=== PATIENT | male | born 1940 | race Caucasian/White ===

== ENCOUNTER → 2018-04-18 09:52 | Outpatient (CLI) | payer MEDICARE, OTHER, SELFPAY ==
[2018-04-18 10:36] LABS: Add Manual Diff / Slide Review NO; Basophils Percent Auto 1.1 % (0-2); Eosinophils Percent Auto 1.8 % (2-4); Hematocrit 46.6 % (41-53); Hemoglobin 16.1 g/dL (13.5-17.5); Lymphocytes Percent Auto 19.4 % (25-40); Mean Corpuscular HGB Conc 34.5 % (30-36); Mean Corpuscular Hemoglobin 31.5 PG (26-34); Mean Corpuscular Volume 91.3 fL (80-100); Monocytes Percent Auto 11.8 % (3-14); Neutrophils Absolute Auto 4100 /uL (3000-5900); Neutrophils Percent Auto 65.9 % (50-75); Platelet Count 252 X10^3/uL (150-400); Red Cell Distribution Width 13.1 % (11.6-14.8); White Blood Cell Count 6.3 X10^3/uL (4.5-11.0)
[2018-04-18 10:50] LABS: Carbon Dioxide 26 mmol/L (22-32); Chloride 103 mmol/L (98-107); HEMOLYSIS < 15 (0-50); Potassium 4.2 mmol/L (3.4-5.1); Sodium 142 mmol/L (137-145)
== END ==
PROVIDERS: Visit Provider Orthopaedic Surgery
DX: M16.12 Unilateral primary osteoarthritis, left hip (principal); Z01.818 Encounter for other preprocedural examination; Z01.812 Encounter for preprocedural laboratory examination
CPT/HCPCS: 36415; 80051; 85025; 93005

== ENCOUNTER 2018-04-30 07:58 | Inpatient (IN) | payer MEDICARE, OTHER, SELFPAY ==
[2018-04-22 10:05] VITALS: BMI 32.2
[2018-04-23 12:57] VITALS: BMI 32.2
[2018-04-30] VITALS (16 sets, daily range): BP systolic 95–174; BP diastolic 44–70; PULSE 59–83; RESP 12–18; TEMP 35.9–36.5; O2SAT 93–98; BMI 32.2
--- NOTE | 2018-04-30 06:00 | DI.RAD.S_ITS ---
PROCEDURE: XR PELVIS 1-2V INDICATIONS: prosthesis placement TECHNIQUE: 1 view of the lower pelvis acquired. COMPARISON: None. FINDINGS: Bones: Patient is status post left hip arthroplasty, with hardware components in expected positions. The hip joint appears congruent. The visualized bony structures appear intact. Soft tissues: Overlying postoperative changes are noted. No suspicious soft tissue densities. IMPRESSION: Normal postoperative examination. Dictated by: Jose M Jameson M.D. on 04/30/2018 at 9:50 Approved by: Jose M Jameson M.D. on 04/30/2018 at 9:51
[2018-04-30] MEDS: ACETAMINOPHEN 325 MG TABLET 975 MG PO (08:10)
[2018-04-30] MEDS: CELECOXIB 200 MG CAPSULE PO (08:10)
[2018-04-30] MEDS: PREGABALIN 75 MG CAPSULE PO (08:11)
--- NOTE | 2018-04-30 08:19 | PM.PREOP ---
Pre-operative Note Interval Note Pre-op Check: Yes History & Physical Reviewed by Physician Changes: No
--- NOTE | 2018-04-30 08:23 | SUR.OPER ---
Lateral on padded OR bed. Gel axillary roll. Arms secured on padded armboard with pillow supporting top arm. Padded hip positioner braces x4 - anterior and posterior chest and pelvis. Additional gel pad used anterior pelvis. Gel pad under bottom leg from knee to foot and secured with tape over sheet.
[2018-04-30] MEDS: LACTATED RINGERS 1,000 ML 42 ML IV ×2 (08:28→10:18)
[2018-04-30] MEDS: CEFAZOLIN 2 GM/100 ML FROZ.PIGGY IV ×2 (08:55→18:42)
[2018-04-30] MEDS: BUPIVACAINE 0.25% W/ EPI VIAL 50 ML INJ (09:41)
--- NOTE | 2018-04-30 10:13 | PC.NURSE ---
Day shift: Pt is not on AC unit at this time.
--- NOTE | 2018-04-30 10:28 | PM.OP.1 ---
Operative Date/Time/Diagnoses Date of procedure: 04/30/18 Time of procedure: 10:28 Pre-op diagnosis: Left hip degenerative joint disease Post-op diagnosis: same Procedure & Clinicians Procedure: Left total hip arthroplasty (CPT code 95287 with medical assistant cardiology) Same procedure as scheduled: Yes Indications: Patient is an 78-year-old male with severe left hip DJD. The patient has pain with activities and at rest, limited ambulation and activity tolerance, difficulties with ADLs, and failure of conservative treatment. We have discussed the nature of condition, treatment options, risks and benefits, and patient elects to proceed with total hip arthroplasty and gives informed consent. Surgeon: Ramirez Arango Retail Beauty Specialist: Ary Castro Anesthesia Type: General and Spinal Operative Notes Closure Type: primary Specimen(s): none sent Implants & Drains: Acetabulum: [employer] R3 acetabular component size 54 mm Femoral component: [employer] Synergy stem size 14 with high offset Femoral head: 36 mm + 0 cobalt chrome Estimated Blood Loss (mL): 100 Procedure in detail: After satisfaction induction of anesthetic, and administration of IV antibiotics, the patient was positioned in the lateral decubitus position with all bony prominences well padded and pelvic position secured using a hip reconciliation clerk positioning device. Left hip and lower extremity prepped and draped in the usual sterile fashion, 1st dose of intravenous tranexamic acid was administered, then a longitudinal incision was created centered over the greater trochanter and carried sharply through the skin and subcutaneous tissues down to the fascia pam which was divided longitudinally and retracted with a Charnley retractor. External rotators visualize, cut, tagged, and retracted posteriorly, then the capsule was cut in a T-type fashion with the corners tagged and retracted. Hip was dislocated and femoral neck cut made according to preoperative templating. Acetabular retractors then placed, and the acetabular labrum and osteophytes were excised. The acetabulum was then sequentially reamed to 53 mm with an excellent circumferential ream and fit with the trial. The trial component was removed and a permanent size 54 mm [employer]hew R3 acetabular component was selected, positioned, and impacted with satisfactory position and fixation achieved. Permanent liner was then inserted with the elevated lip directed posteriorly. Soft tissue then removed off the lateral femoral neck in the lateral neck was entered using a box osteotome. T-handled reamers placed down the canal followed by sequential broaching to 14 with the final broach left in place for trial reduction which demonstrated excellent leg length, range of motion, and stability characteristics with a 36 mm +0 trial ball and high offset neck. The trial and broach were removed, and a permanent size 14 high offset Mead [employer] Nephew Synergy stem was selected and inserted with excellent position and fixation achieved. Another trial reduction yielded the above characteristics so the trial ball was exchanged for a permanent 36 mm +0 cobalt chrome ball. The hip was irrigated and reduced and excellent leg length range of motion and stability characteristics were achieved and maintained. The hip was copiously irrigated, and the capsule repaired with #2 Ethibond, and the piriformis was repaired back to the greater trochanter with the same. Fascia pam closed with interrupted #1 Ethibond sutures, and the subcutaneous tissues were closed in 2 layers of 0 Vicryl and 2 0 Vicryl. Skin was closed with ivette and sterile dressings applied. Second dose of tranexamic acid was administered intravenously, and the anesthetic was terminated. Complications: none Condition: stable Disposition: PACU Plan for aftercare: Patient will be admitted to the [facility], and anticipate discharge on postop day 2 with follow-up in office in 10-14 days. Outpatient physical therapy will be arranged and patient will continue to observe posterior hip precautions. Patient will continue use of postoperative Lovenox for 10 days postop.
--- NOTE | 2018-04-30 10:33 | P.OP_ITS ---
Operative Date/Time/Diagnoses Date of procedure: 04/30/18 Time of procedure: 10:28 Pre-op diagnosis: Left hip degenerative joint disease Post-op diagnosis: same Procedure & Clinicians Procedure: Left total hip arthroplasty (CPT code 27283 with contact center assistant) Same procedure as scheduled: Yes Indications: Patient is an 78-year-old male with severe left hip DJD. The patient has pain with activities and at rest, limited ambulation and activity tolerance, difficulties with ADLs, and failure of conservative treatment. We have discussed the nature of condition, treatment options, risks and benefits, and patient elects to proceed with total hip arthroplasty and gives informed consent. Surgeon: Ramirez Arango Lock Fitter: Ary Castro Anesthesia Type: General and Spinal Operative Notes Closure Type: primary Specimen(s): none sent Implants & Drains: Acetabulum: [employer]hew R3 acetabular component size 54 mm Femoral component: [employer]hew Synergy stem size 14 with high offset Femoral head: 36 mm + 0 cobalt chrome Estimated Blood Loss (mL): 100 Procedure in detail: After satisfaction induction of anesthetic, and administration of IV antibiotics, the patient was positioned in the lateral decubitus position with all bony prominences well padded and pelvic position secured using a hip horn player positioning device. Left hip and lower extremity prepped and draped in the usual sterile fashion, 1st dose of intravenous tranexamic acid was administered, then a longitudinal incision was created centered over the greater trochanter and carried sharply through the skin and subcutaneous tissues down to the fascia pam which was divided longitudinally and retracted with a Charnley retractor. External rotators visualize, cut, tagged, and retracted posteriorly, then the capsule was cut in a T-type fashion with the corners tagged and retracted. Hip was dislocated and femoral neck cut made according to preoperative templating. Acetabular retractors then placed, and the acetabular labrum and osteophytes were excised. The acetabulum was then sequentially reamed to 53 mm with an excellent circumferential ream and fit with the trial. The trial component was removed and a permanent size 54 mm Mead [employer]hew R3 acetabular component was selected, positioned, and impacted with satisfactory position and fixation achieved. Permanent liner was then inserted with the elevated lip directed posteriorly. Soft tissue then removed off the lateral femoral neck in the lateral neck was entered using a box osteotome. T-handled reamers placed down the canal followed by sequential broaching to 14 with the final broach left in place for trial reduction which demonstrated excellent leg length, range of motion, and stability characteristics with a 36 mm +0 trial ball and high offset neck. The trial and broach were removed, and a permanent size 14 high offset Mead [employer]hew Synergy stem was selected and inserted with excellent position and fixation achieved. Another trial reduction yielded the above characteristics so the trial ball was exchanged for a permanent 36 mm +0 cobalt chrome ball. The hip was irrigated and reduced and excellent leg length range of motion and stability characteristics were achieved and maintained. The hip was copiously irrigated, and the capsule repaired with #2 Ethibond, and the piriformis was repaired back to the greater trochanter with the same. Fascia pam closed with interrupted #1 Ethibond sutures, and the subcutaneous tissues were closed in 2 layers of 0 Vicryl and 2 0 Vicryl. Skin was closed with ivette and sterile dressings applied. Second dose of tranexamic acid was administered intravenously , and the anesthetic was terminated. Complications: none Condition: stable Disposition: PACU Plan for aftercare: Patient will be admitted to the [facility], and anticipate discharge on postop day 2 with follow-up in office in 10-14 days. Outpatient physical therapy will be arranged and patient will continue to observe posterior hip precautions. Patient will continue use of postoperative Lovenox for 10 days postop.
--- NOTE | 2018-04-30 11:43 | PC.NURSE ---
Day shift: Arrived on unit at approx 1130 from PACU. Oriented to room and call light. Limited sensation BLE. Denies pain and nausea. Pt's spouse name is Joselyn. VS WNL. Left hip bulky dressing is CDI. Call light in reach and bed alarm is on.
[2018-04-30] MEDS: LACTATED RINGERS 1,000 ML 125 ML IV (11:49)
--- NOTE | 2018-04-30 16:00 | PT.IIE ---
Current Diagnoses Unilateral primary osteoarthritis, left hip (04/30/18) Surgery Performed Operation Date: 04/30/18 10:15 Actual Procedures p Total Hip Arthroplasty(Left) - Ramierz Arango MD Surgical History (Last Updated 04/23/18 @ 13:17 by Eileen Corona, RN) H/O hand surgery (Acute) History of tonsillectomy (Acute) History of total knee arthroplasty (Acute) Medical History (Last Updated 04/23/18 @ 13:15 by Eileen Corona, RN) Aortic insufficiency (Acute) Aortic regurgitation (Acute) Arthritis (Acute) Bilateral hearing loss (Acute) Chronic gout (Acute) Enlarged prostate (Acute) Essential hypertension (Acute) History of aneurysm (Acute) Mitral regurgitation (Acute) Murmur (Acute) Pure hypercholesterolemia (Acute) Valvular heart disease (Acute) Physical Therapy Inpatient Evaluation/Re-Eval Medical Review Prior Functional Status Medical History Reviewed Yes Diet/Fluid Consistency Regular Communication no known deficits other than [place] Mobility and Gait indep without AD, does have access to a FWW Activities of Daily Living and IADL's ind Prior Functional Level (Other details) denies falls, usually drives Social History Household Members spouse Living Arrangements House Number of Floors (Floors) One Floor Number of Stairs To Enter/Railing? 2-5 BLADE depending on entrance Home Environment Standard Height Toilet Walk in Shower Home Equipment Front Wheel Walker Hospital Bed Employment Status Retired Additional Social History Comment can provide 20/02 assist Physical Therapy Current Condition Current Condition Evaluation Date 04/30/18 Treatment Diagnosis L post DANIELA - impaired mobility Precautions Posterior Hip Precautions No Hip Flexion > 90 degrees No Hip Internal Rotation No Hip Adduction Weight Bearing Status Weight Bearing Status Weight Bear as Tolerated Subjective Physical Therapy Visit Type Type Initial Evaluation Visit Start Time 14:50 Visit Stop Time 15:50 Total Visit Minutes 60 Physical Therapy Visit Comments Patient Comments Pt wants to go home today. Patient Goals Go home today Therapy Pain Assessment Pain When Pain Assessed At Rest Pain Present Pain Present Denied Pain PT-Bed Mobility Assessment Supine to Sit Supine to Sit Standby Assistance Head of Bed Elevated Bedrails Sit to Supine Sit to Supine Contact Guard Assistance Head of Bed Elevated Bedrails Scooting Scooting to Edge of Bed Standby Assistance PT-Transfer Assessment Sit to and From Stand Sit to and from Stand Contact Guard Assistance Equipment Transfer Assistive Device Gait Belt Front Wheeled Walker Transfer Ability Level of Assist Contact Guard Assistance 1 Person Assistance Use of Upper Extremities Comments Mobility Comments Pt is able to complete bed mobility and sit<>stand without true physical assistance, however, pt needs nearly constant cues to maintain post hip prec. Gait Assessment Gait Gait Assistance Required: Contact Guard Assist Minimum Assistance Distance (Feet) 25 Assistive Devices Assistive Device Gait Belt Front Wheeled Walker Gait Deviations General Gait Pattern Antalgic Decreased Stride Length Decreased Feet Clearance Flexed Trunk Step-to Gait Wide Based Gait Factors Limiting Gait Function Factors Limiting Gait Function Decreased Activity Tolerance Decreased Strength Poor Balance Poor Safety Awareness Respiratory Distress Comments Gait Comments Pt able to walk 25 ft with FWW and CGA<>min A (2nd person needed to manage IVpole). Pt's balance and upright postural control were not as good as was expected. Pt demonstrated the above abnormalities but also did not respond well to cues for correction. Stair Climbing Assessment Comments Stair Climbing Comments not yet assessed PT-Balance Assessment Sitting Balance and Reactions Static Sitting Balance Ability Good Dynamic Sitting Balance Ability Fair Standing Balance and Reactions Static Standing Balance Ability Fair Dynamic Standing Balance Ability Poor Device Used FWW Orientation Orientation/Cognition Level of Alertness Alert Orientation Name Age Birthday Language Function Ability Hard of Hearing Safety Awareness Decreased Safety Awareness Memory Description Short Term Impaired Comments Pt quite [place] and some level of delay with answering questions. Gross Range of Motion Upper Extremity ROM Assessment Within Functional Limits Lower Extremity ROM Assessment Within Functional Limits Impairments with L post hip prec Strength Upper Extremity Strength Assessment Within Functional Limits Comments Strength Comments not formally tested, RLE appears fully intact, LLE limited but pt does have at least anti-gravity Sensation Assessment Sensation Light Touch Intact Physical Therapy Treatment Exercises Exercises Ankle Pumps Gluteal Sets Quad Sets Heel Slides Supine Hip Abduction Education Education Provided Precautions Weight Bearing Status Post-Op Packet Safety PT Summary Assessment and Plan Potential Rehabilitation Potential Good Status of Condition at Evaluation Evolving Summary Impairments ROM Strength Cognition Bed Mobility Transfers Gait Activity Tolerance Assessment Summary Pt is POD#0 for left posterior DANIELA. Pt denies pain at all times and denies feeling any side-effects from medications, however, pt unable to retain hip precaution education and was definitely impulsive with mobility. Pt presents with the above deficits/impairments, causing the need for up to min A with mobility, which is below pt's reported functional baseline. Pt does have potential for functional improvement and will benefit from ongoing skilled therapies to optimize independence, reduce fall risk, and return pt to [facility]. Pt is not safe to to go home today, he needs more mobilization attempts with therapy/nursing prior to going home in addition to needing some form of caregiver training and stair training. Pt is willing to wait until tomorrow, PT to reassess in the morning. Goals Bed Mobility Goal Standby Assistance Transfer Goal Standby Assistance Front Wheeled Walker Gait Goal Standby Assistance Front Wheel Walker Gait Distance 75 Other Goals Up/down 5 steps w/ 1 rail and CGA. Days to Meet Goals 2 Frequency of Treatment Frequency Of Treatment Twice a Day Treatment Plan Physical Therapy Treatment Plan Bed Mobility Training Transfer Training Gait Training Therapeutic Exercise Balance Retraining Post Op Education Discharge Planning Hot or Cold Pack Neuromuscular Re-ed Coordination Retraining Manual Therapy Other Recommendations and Next Treatment see with present, gross Focus mobility screen to confirm he' s safe to go home, stair training, any caregiver training that's needed. Recommendations To Nursing Amount of Assist Needed 1 Person Assist Discharge Recommendations PT Discharge Recommendations Home with 20/02 Assist Home Health
[2018-04-30] MEDS: ASPIRIN EC 81 MG TABLET PO (20:18)
[2018-04-30] MEDS: METOPROLOL 50 MG TABLET 75 MG PO (20:19)
[2018-04-30] MEDS: LISINOPRIL 20 MG TABLET PO (20:19)
[2018-05-01] MEDS: CEFAZOLIN 2 GM/100 ML FROZ.PIGGY IV (01:47)
--- NOTE | 2018-05-01 02:08 | PC.NURSE ---
Addendum entered by Ling Hitchcock R.N. 05/01/18 05:47: Slept at intervals. UOP this shift 2049 and is taking good po fluids so IV saline locked once IVF infused. Continues to deny pain. Original Note: Addendum entered by Ling Hitchcock R.N. 05/01/18 03:01: Patient complaining of slight nausea; medicated with Zofran Original Note: Patient is alert and oriented. Breath sounds CTA with RA sat of 96%. HRR; BP slightly elevated at 146/59. Denies nausea. BT hypoactive but states he has been passing lots of flatus; abdomen feels firm. Indwelling catheter is patent with clear avani urine in bag. Dressing to left hip is CDI. Able to turn self. Denies any pain at present time. Wearing bilateral SCD's. Fall risk score is high and bed alarm is activated.
[2018-05-01] MEDS: ONDANSETRON 4 MG ODT PO (02:59)
[2018-05-01 03:00] VITALS: BP 149/76; PULSE 72; RESP 16; TEMP 36.3; O2SAT 94
[2018-05-01 06:02] LABS: Hematocrit 37.5 % (41-53); Hemoglobin 13.3 g/dL (13.5-17.5)
[2018-05-01 07:33] VITALS: BP 134/55; PULSE 64; RESP 18; TEMP 36.7; O2SAT 96
--- NOTE | 2018-05-01 08:28 | PM.PNPO.1 ---
Subjective Date Patient Seen: 05/01/18 Time Patient Seen: 08:28 Interval history: Patient is postop day 1. Status post left total hip arthroplasty by Dr. Arango. No complaints of pain today. Has a Arreola catheter in because he cannot urinate last night. Has not had physical therapy yet. Would like to go home today if possible. Exam Vital Signs (past 8 hours): - 05/01/18 03:00 Temperature 97.4 F L Pulse Rate 72 Respiratory Rate 16 Blood Pressure 149/76 H Pulse Oximetry 94 Oxygen Delivery Method Room Air Narrative Exam Narrative: Patient in bed. About to have breakfast. Alert and orient x3. Appears comfortable. Left hip dressing clean dry and intact. Bilateral calves soft and nontender. Neurovascular status intact. 5/5 BLE strength. Objective Labs Result Diagrams: 05/01/18 05:12 Labs: Laboratory Results - last 24 hr 05/01/18 05:12 Hgb 13.3 L Hct 37.5 L Assessment & Plan Post-op Postoperative Procedures Operation Date: 04/30/18 10:15 Actual Procedures Side Surgeon p Total Hip Arthroplasty Left Ramirez Arango MD Postop day 1. Patient would like to go but he must be able to urinate and ambulate before discharge. Right discharge orders for tentative discharge today if he is able to complete these 2 things. Prescription for Lovenox 40 mg x9 days for DVT prophylaxis. He already has this pain medications at home. Physical therapy is already set up for next week. Quality VTE Deep Vein Thrombosis/Pulmonary Embolism Present on Admission: No
[2018-05-01] MEDS: METOPROLOL 50 MG TABLET 75 MG PO (08:33)
[2018-05-01] MEDS: ENOXAPARIN 40 MG/0.4 ML SYRINGE SUBCUT (08:35)
[2018-05-01] MEDS: hydroCHLOROthiazide 25 MG TABLET PO (08:35)
[2018-05-01] MEDS: ALLOPURINOL 100 MG TABLET PO (08:35)
[2018-05-01] MEDS: FENOFIBRATE 160 MG TABLET PO (08:35)
[2018-05-01] MEDS: SODIUM CHLORIDE 0.9% FLUSH 10 ML IV (08:36)
[2018-05-01] MEDS: HYDROCODONE/ACET 5/325 TABLET 1 TAB PO ×2 (08:37→14:52)
[2018-05-01 09:26] VITALS: BP 167/55
--- NOTE | 2018-05-01 09:41 | PT.IPTN ---
Addendum entered and electronically signed by Megan Wells, PT 05/01/18 09:41: I directly supervised and guided this session. Jc Wells, DPGordy Original Note: Current Diagnoses Unilateral primary osteoarthritis, left hip (04/30/18) Surgery Performed Operation Date: 04/30/18 10:15 Actual Procedures p Total Hip Arthroplasty(Left) - Ramirez Arango MD Physical Therapy Treatment Note M2 PT-IP Current Condition Start: 04/30/18 13:05 Freq: NEEDED Status: Active Protocol: Document 04/30/18 14:50 RS (Rec: 05/01/18 07:51 RS [email or web address]) Physical Therapy Current Condition Current Condition Evaluation Date 04/30/18 Treatment Diagnosis L post DANIELA - impaired mobility Precautions Posterior Hip Precautions No Hip Flexion > 90 degrees No Hip Internal Rotation No Hip Adduction Weight Bearing Status Weight Bearing Status Weight Bear as Tolerated M3 PT-IP Subjective Start: 04/30/18 13:05 Freq: NEEDED Status: Active Protocol: Document 05/01/18 09:26 (Rec: 05/01/18 09:41 [email or web address]) Subjective Physical Therapy Visit Type Type Treatment Note Visit Start Time 09:14 Visit Stop Time 09:59 Total Visit Minutes 45 Physical Therapy Visit Comments Patient Comments Feels fine. Ready to ambulate and try stairs. Ready to go home Wouldn't you be?! Patient Goals Go home. Therapy Pain Assessment Pain When Pain Assessed After Treatment Pain Present Pain Present Pain Reported Location Left Hip Intensity 1 Scale Used Numeric (1 - 10) M4 PT-IP Mobility and Gait Start: 04/30/18 13:05 Freq: NEEDED Status: Active Protocol: Document 05/01/18 09:26 (Rec: 05/01/18 09:41 [email or web address]) PT-Bed Mobility Assessment Supine to Sit Supine to Sit Standby Assistance Sit to Supine Sit to Supine Standby Assistance Scooting Scooting to Edge of Bed Standby Assistance PT-Transfer Assessment Sit to and From Stand Sit to and from Stand Standby Assistance Equipment Transfer Assistive Device Standard Walker Orthotic/Prosthetic Devices or Brace: No Transfers Transfer Destination Bed Chair Wheelchair Transfer Technique Stand Step Pivot Transfer Ability Level of Assist Standby Assistance Comments Mobility Comments SBA needed mainly to remind patient of precautions. Is still slightly impulsive. Gait Assessment Gait Gait Assistance Required: Standby Assistance Distance (Feet) 200 Assistive Devices Assistive Device Standard Walker Gait Deviations General Gait Pattern Within Normal Limits Stair Climbing Assessment Evaluation Level of Assist On Stairs Standby Assistance Contact Guard Assistance Technique/Endurance Stair Climbing Technique Step to Step Comments Stair Climbing Comments Needs reminders to slow down and Not break precautions. PT-Balance Assessment Sitting Balance and Reactions Static Sitting Balance Ability Normal Dynamic Sitting Balance Ability Normal Standing Balance and Reactions Static Standing Balance Ability Normal Dynamic Standing Balance Ability Good M5 PT-IP Objective Assessments Start: 04/30/18 13:05 Freq: NEEDED Status: Active Protocol: Document 04/30/18 14:50 RS (Rec: 05/01/18 07:51 RS [email or web address]) Orientation Orientation/Cognition Level of Alertness Alert Orientation Name Age Birthday Language Function Ability Hard of Hearing Safety Awareness Decreased Safety Awareness Memory Description Short Term Impaired Comments Pt quite [place] and some level of delay with answering questions. Gross Range of Motion Upper Extremity ROM Assessment Within Functional Limits Lower Extremity ROM Assessment Within Functional Limits Impairments with L post hip prec Strength Upper Extremity Strength Assessment Within Functional Limits Comments Strength Comments not formally tested, RLE appears fully intact, LLE limited but pt does have at least anti-gravity Sensation Assessment Sensation Light Touch Intact M6 PT-IP Treatment Start: 04/30/18 13:05 Freq: NEEDED Status: Active Protocol: Document 04/30/18 14:50 RS (Rec: 05/01/18 07:51 RS [email or web address]) Physical Therapy Treatment Exercises Exercises Ankle Pumps Gluteal Sets Quad Sets Heel Slides Supine Hip Abduction Education Education Provided Precautions Weight Bearing Status Post-Op Packet Safety M7 PT-IP Assessment and Plan Start: 04/30/18 13:05 Freq: NEEDED Status: Active Protocol: Document 05/01/18 09:26 (Rec: 05/01/18 09:41 [email or web address]) PT Summary Assessment and Plan Potential Rehabilitation Potential Good Status of Condition at Evaluation Stable Summary Impairments Pain ROM Strength Balance Activity Tolerance Progress Towards Goals Progressing Toward Goals Safe For Discharge Assessment Summary POD#2 L THR. Pt demonstrates good ambulation tolerances and ability on stairs. Still needs SBA for verbal reminders to slow down and not break precautions. Touch cuing occasionally needed for same reminders. Discharge home with 24/ assist avaliable ( states able to do this) anticipated after Arreola removed. OP PT needed for THR rehab protocol to regain strength and for return to full baseline functional status. Goals Bed Mobility Goal Standby Assistance Transfer Goal Standby Assistance Gait Goal Standby Assistance Days to Meet Goals 1 Frequency of Treatment Frequency Of Treatment Discharge Treatment Plan Other Recommendations and Next Treatment Discharge to home 20/02 assist Focus () with OP PT f/u Recommendations To Nursing Amount of Assist Needed Standby Assistance 1 Person Assist Discharge Recommendations PT Discharge Recommendations Home with Assistance Home with 20/02 Assist Outpatient PT Equipment Needed for Home Before Has Standard walker at home Discharge
--- NOTE | 2018-05-01 11:55 | CM.DANOTE ---
DCP/Assessment continued: Reviewed chart. Patient is a 78yr old male admitted [facility] for left DANIELA performed on 04-30-[address] Arango. [facility] 1[facility]Medicare [facility]CP [facility] at [facility]. Met with patient explained CM/SW role. Patient alert and oriented at time of visit. Patient reports that he is discharging home today. Patient seen by therapy and reports that he has been cleared. Patient reports having all needed DME in the home and outpatient therapy scheduled to begin on 05-07-18 at [facility]. Patient denies any d/c planning needs and hopes to be able to leave soon. Spoke with RN whom reports that patient had pope removed and that we are safely waiting for him to void prior to departure. P: Home today once medically stable. GITA Muhammad Discharge Planning/Care Management CM Discharge Assessment Start: 05/01/18 11:53 Freq: Status: Active Protocol: Document 05/01/18 11:53 KJS (Rec: 05/01/18 11:55 KJS [id number]) Discharge Planning Assessment Assigned Importer Or Exporter GITA Muhammad Contact Information Opal Raines # Advance Directives? No: Declines information History Provided By Patient Prior Living Arrangements House Household Members spouse Type of transporation used prior to Drives own vehicle admit Independent with ADL's Yes Is patient alert and oriented? Yes Caregiver for Another No DME Already Rented / Owned FWW / Walker Cane Patient/Family Preference OP PT Therapy Barriers to Discharge No Referrals Initiated None needed Whiteboard Updated in Patient Room with Yes name and ext. # of Importer Or Exporter Review Status In Process Please Provide Date Initial DC 05/01/18 Assessment Was Performed Next Review Type Continued Stay Review Pre-Anesthesia Assessment Start: 04/22/18 10:05 Freq: Status: Complete Protocol: Document 04/22/18 10:05 [place] (Rec: 04/22/18 10:42 [facility] [email or web address]) Pre-Anesthesia Assessment Patient Information Reviewed Via Chart Review Primary Care Provider Mk Goddard Seen Specialist in Last 12 Months Yes Specialist Seen Slate Roofer Orthopedist Height 170.18 cm Weight 93.44 kg Body Mass Index (BMI) 32.2 Hearing Ability Hard of Hearing Anesthesia Review Requested No Mine Engineering Supervisor No alcohol intake current alcohol intake frequency 3 or more drinks per day Alcohol Intake Frequency Other: Beer 21-28 cans/week, 12.6-16. 8 oz/week Smoking Status Former smoker Tobacco type cigarettes how long ago did patient quit smoking 1997 Does patient have BAUTISTA/SOB Yes Currently Taking a Beta Whitley Yes: Metoprolol Can You Climb a Flight of Stairs Without No SOB Hx SOB Yes Has a Slate Roofer Yes: Dr. Valdovinos; 6 month follow up 11/07/17 Cardiac Testing Yes: Echo 10/13 Comment Dynamic outflow tract obstruction Marital Status merried Document 04/23/18 12:57 [facility] (Rec: 04/23/18 13:28 [facility] [email or web address]) Pre-Anesthesia Assessment Patient Also Known As Jiang (AKA) Patient Information Reviewed Via Chart Review Phone Assessment Assessment Completed With Patient Primary Care Provider Mk Goddard Seen Specialist in Last 12 Months Yes Specialist Seen Slate Roofer Orthopedist Primary Language [place] Islander Senior Infrastructure Engineer Required No Height 170.18 cm Weight 93.44 kg Body Mass Index (BMI) 32.2 Hearing Ability Hard of Hearing Visual Impairment Partially Limited Visual Assist Glasses Dentition Type Full- Upper & Lower Barriers to Learning Auditory Visual Comment Reading glasses Hx Anesthesia Reactions No Hx Family Anesthesia Reaction No Hx Malignant Hyperthermia No Hx Blood Transfusions No Anesthesia Review Requested No Mine Engineering Supervisor No alcohol intake current alcohol intake frequency 0-2 drinks per day Alcohol Intake Frequency Other: Beer 21-28 cans/week, 12.6-16. 8 oz/week Smoking Status Former smoker Tobacco type pipe Has it been 2 weeks or less since No patient quit smoking how long ago did patient quit smoking 1997 Substance Use Type does not use Comment Smoked 1 pounch/day for 5-6 years Pain Present Pain Reported Comment Left hip and knee Musculoskeletal Symptoms Back Pain Joint Pain History of Falling (Recent or History of No ) Patient is completely paralyzed or No completely immobile Ambulatory Aid None/bed rest/nurse assist Gait/Transferring Impaired Mental Status Oriented to own ability Is patient on oxygen? No Does patient have BAUTISTA/SOB Yes Hx Sleep Apnea No Suspected Sleep Apnea No Currently Taking a Beta Whitley Yes: Metoprolol Can You Climb a Flight of Stairs Without No SOB Hx Chest Pain No Hx SOB Yes Hx Syncope or Dizziness No Anti-Coagulant Therapy No Has a Slate Roofer Yes: Dr. Valdovinos; 6 month follow up 11/07/17 Cardiac Testing Yes: Echo 10/13 Hx Pacemaker/ICD No Comment Dynamic outflow tract obstruction Diet Type At Home Regular dysphagia No Urinary Catheter Present No Hx Urinary Self Catheterization No Diabetes No Hx Drug Resistant Organism No Presence of External or Internal Medical No Devices Have you traveled outside the [facility] States in the last 30 days? Marital Status Lives With spouse Prior Living Arrangements House Number of Floors (Floors) One Floor Number of Stairs To Enter/Railing? four step into house w/ handrail Support System Spouse Does the Patient Have Assistance After Yes Surgery Patient Discharge Plan Description Return Home Feels Safe in Current Environment Yes Been Physically Hurt or Threatened By a No Person in Current Environment Do you have thoughts of harming yourself None or others? Are you currently considering suicide? No Do you have a plan to hurt yourself or No Plan others? Do You Have Any Spiritual Beliefs That No May Affect Your HC Choices? Do You Have Any Cultural Practices That No May Affect Your HC Choices? Spiritual Referral None Who Can We Speak to About Patient's Care Friends & Family Identifying Code for Release of Patient declined Information Health Care Proxy/Next of Kin Yusra Raines - spouse Health Care Proxy Phone Number will provide on DOS Emergency Contact Name Same Emergency Contact Phone Number Same Advance Directives? No: Declines information Power of Medical Sonographer Yes: Power of Medical Sonographer Name As above PAC Instructions Assistance for 24 hours post- op Do not shave/clip surgical site Durable medical equipment Medications to take/avoid Nasal antibiotic No ETOH/petroleum product on skin DOS NPO Ortho class Post-op transportation Pre-op antibiotic Pre-surgical wash Sensory aids Sturdy shoes/comfortable clothes Do not bring valuables and remove jewelry Discharge Planning/Care Management CM Discharge Assessment Start: 05/01/18 11:53 Freq: Status: Active Protocol: Document 05/01/18 11:53 KJS (Rec: 05/01/18 11:55 KJS [id number]) Discharge Planning Assessment Assigned Importer Or Exporter GITA Muhammad Contact Information Opal Raines # Advance Directives? No: Declines information History Provided By Patient Prior Living Arrangements House Household Members spouse Type of transporation used prior to Drives own vehicle admit Independent with ADL's Yes Is patient alert and oriented? Yes Caregiver for Another No DME Already Rented / Owned FWW / Walker Cane Patient/Family Preference OP PT Therapy Barriers to Discharge No Referrals Initiated None needed Whiteboard Updated in Patient Room with Yes name and ext. # of Importer Or Exporter Review Status In Process Please Provide Date Initial DC 05/01/18 Assessment Was Performed Next Review Type Continued Stay Review Pre-Anesthesia Assessment Start: 04/22/18 10:05 Freq: Status: Complete Protocol: Document 04/22/18 10:05 [facility] (Rec: 04/22/18 10:42 [facility] [email or web address]) Pre-Anesthesia Assessment Patient Information Reviewed Via Chart Review Primary Care Provider Mk Goddard Seen Specialist in Last 12 Months Yes Specialist Seen Slate Roofer Orthopedist Height 170.18 cm Weight 93.44 kg Body Mass Index (BMI) 32.2 Hearing Ability Hard of Hearing Anesthesia Review Requested No Mine Engineering Supervisor No alcohol intake current alcohol intake frequency 3 or more drinks per day Alcohol Intake Frequency Other: Beer 21-28 cans/week, 12.6-16. 8 oz/week Smoking Status Former smoker Tobacco type cigarettes how long ago did patient quit smoking 1997 Does patient have BAUTISTA/SOB Yes Currently Taking a Beta Whitley Yes: Metoprolol Can You Climb a Flight of Stairs Without No SOB Hx SOB Yes Has a Slate Roofer Yes: Dr. Valdovinos; 6 month follow up 11/07/17 Cardiac Testing Yes: Echo 10/13 Comment Dynamic outflow tract obstruction Marital Status merried Document 04/23/18 12:57 [facility] (Rec: 04/23/18 13:28 [facility] [email or web address]) Pre-Anesthesia Assessment Patient Also Known As Jiang (AKA) Patient Information Reviewed Via Chart Review Phone Assessment Assessment Completed With Patient Primary Care Provider Mk Goddard Seen Specialist in Last 12 Months Yes Specialist Seen Slate Roofer Orthopedist Primary Language [place] Islander Senior Infrastructure Engineer Required No Height 170.18 cm Weight 93.44 kg Body Mass Index (BMI) 32.2 Hearing Ability Hard of Hearing Visual Impairment Partially Limited Visual Assist Glasses Dentition Type Full- Upper & Lower Barriers to Learning Auditory Visual Comment Reading glasses Hx Anesthesia Reactions No Hx Family Anesthesia Reaction No Hx Malignant Hyperthermia No Hx Blood Transfusions No Anesthesia Review Requested No Mine Engineering Supervisor No alcohol intake current alcohol intake frequency 0-2 drinks per day Alcohol Intake Frequency Other: Beer 21-28 cans/week, 12.6-16. 8 oz/week Smoking Status Former smoker Tobacco type pipe Has it been 2 weeks or less since No patient quit smoking how long ago did patient quit smoking 1997 Substance Use Type does not use Comment Smoked 1 pounch/day for 5-6 years Pain Present Pain Reported Comment Left hip and knee Musculoskeletal Symptoms Back Pain Joint Pain History of Falling (Recent or History of No ) Patient is completely paralyzed or No completely immobile Ambulatory Aid None/bed rest/nurse assist Gait/Transferring Impaired Mental Status Oriented to own ability Is patient on oxygen? No Does patient have BAUTISTA/SOB Yes Hx Sleep Apnea No Suspected Sleep Apnea No Currently Taking a Beta Whitley Yes: Metoprolol Can You Climb a Flight of Stairs Without No SOB Hx Chest Pain No Hx SOB Yes Hx Syncope or Dizziness No Anti-Coagulant Therapy No Has a Slate Roofer Yes: Dr. Valdovinos; 6 month follow up 11/07/17 Cardiac Testing Yes: Echo 10/13 Hx Pacemaker/ICD No Comment Dynamic outflow tract obstruction Diet Type At Home Regular dysphagia No Urinary Catheter Present No Hx Urinary Self Catheterization No Diabetes No Hx Drug Resistant Organism No Presence of External or Internal Medical No Devices Have you traveled outside the [facility] in the last 30 days? Marital Status Lives With spouse Prior Living Arrangements House Number of Floors (Floors) One Floor Number of Stairs To Enter/Railing? four step into house w/ handrail Support System Spouse Does the Patient Have Assistance After Yes Surgery Patient Discharge Plan Description Return Home Feels Safe in Current Environment Yes Been Physically Hurt or Threatened By a No Person in Current Environment Do you have thoughts of harming yourself None or others? Are you currently considering suicide? No Do you have a plan to hurt yourself or No Plan others? Do You Have Any Spiritual Beliefs That No May Affect Your HC Choices? Do You Have Any Cultural Practices That No May Affect Your HC Choices? Spiritual Referral None Who Can We Speak to About Patient's Care Friends & Family Identifying Code for Release of Patient declined Information Health Care Proxy/Next of Kin Yusra Raines - spouse Health Care Proxy Phone Number will provide on DOS Emergency Contact Name Same Emergency Contact Phone Number Same Advance Directives? No: Declines information Power of Medical Sonographer Yes: Power of Medical Sonographer Name As above PAC Instructions Assistance for 24 hours post- op Do not shave/clip surgical site Durable medical equipment Medications to take/avoid Nasal antibiotic No ETOH/petroleum product on skin DOS NPO Ortho class Post-op transportation Pre-op antibiotic Pre-surgical wash Sensory aids Sturdy shoes/comfortable clothes Do not bring valuables and remove jewelry
[2018-05-01 12:23] VITALS: BP 172/59; PULSE 66; RESP 16; TEMP 36.6; O2SAT 96
--- NOTE | 2018-05-01 13:48 | PC.NURSE ---
: Had been unable to void after trying twice earlier. Bladder scan showed 419 ml. After bladder scan he was able to void 300 ml. Will be seen by PT again this afternoon. May still end up going home today as long as he continues to be able to void without issue.
== END 2018-05-01 16:20 | disposition home or self-care (01) | DRG 470 ==
PROVIDERS: Admitting Provider Orthopaedic Surgery; Visit Provider Orthopaedic Surgery
PROC: 0SRB0JZ Replacement of Left Hip Joint with Synthetic Substitute, Open Approach (ICD-10-PCS; CPT 27130; principal; 2018-04-30 10:15)
DX: M16.12 Unilateral primary osteoarthritis, left hip (principal); I10 Essential (primary) hypertension; R01.1 Cardiac murmur, unspecified; Z87.891 Personal history of nicotine dependence
CPT/HCPCS: 36415; 72170; 85014; 85018; 97110; 97116; 97161; 97530; C1776; J0690; J1100; J1650; J2250; J2274; J2405; J2704